=== PATIENT | male | born 1970 | race Hispanic/Latino ===

== ENCOUNTER 2018-11-26 21:55 | Inpatient (IN) | payer BC ==
[~2018-11-26] VITALS: Ht 188 cm; Wt 98.9 kg
[2018-11-26] MEDS ORDERED: ONDANSETRON HCL INJ 2MG/ML 2ML 2 MG/ML VIAL IV STA (22:10)
[2018-11-26] MEDS ORDERED: SODIUM CHLORIDE 0.9% 1000ML 1,000 ML IV STA (22:10)
[2018-11-26] MEDS ORDERED: PANTOPRAZOLE 40 MG 10ML VIAL IV STA (22:10)
[2018-11-26] MEDS ORDERED: MORPHINE SULFATE 2 MG/ML SYR 1ML IV STA (22:10)
[2018-11-26] MEDS ORDERED: FAMOTIDINE 20 MG/2 ML VIAL IV STA (22:49)
[2018-11-26] MEDS ORDERED: MORPHINE SULFATE INJ 4 MG/ML INJ 1ML IV STA (22:49)
[2018-11-26 22:59] LABS: BASOPHILS % 0.2 % (0.0-1.0); EOSINOPHILS % 0.2 % (0.0-6.0); HEMOGLOBIN 9.9 g/dL (14.0-18.0); LYMPHOCYTES # (AUTO) 0.6 (1.0-3.2); LYMPHOCYTES % 5.9 % (18.0-39.1); MEAN CORPUSCULAR HEMOGLOBIN 28.1 pg (28-32); MEAN CORPUSCULAR HGB CONC 34.1 g/dL (31-35); MEAN CORPUSCULAR VOLUME 82.4 fL (81-99); MONOCYTES % 9.6 % (4.4-11.3); NEUTROPHILS # (AUTO) 8.8 (2.1-6.9); NEUTROPHILS % 83.6 % (38.7-80.0); PLATELET COUNT 186 x10e3/uL (140-360); RED BLOOD COUNT 3.52 x10e6/uL (4.3-5.7); RED CELL DISTRIBUTION WIDTH 12.5 % (11.7-14.4)
[2018-11-26 23:09] LABS: INR 1.35; PROTHROMBIN TIME 17.3 seconds (11.9-14.5)
[2018-11-26 23:10] LABS: PARTIAL THROMBOPLASTIN TIME 58.4 seconds (23.8-35.5)
[2018-11-26 23:13] LABS: BILIRUBIN,URINE NEGATIVE (NEGATIVE); CLARITY,URINE HAZY (CLEAR); COLOR,URINE YELLOW (YELLOW); KETONES,URINE TRACE (NEGATIVE); LEUKOCYTE ESTERASE ,URINE NEGATIVE (NEGATIVE); NITRITE,URINE NEGATIVE (NEGATIVE); PROTEIN,URINE DIPSTICK 2+ (NEGATIVE); URINE UROBILINOGEN 0.2 mg/dL (0.2 - 1)
[2018-11-26 23:14] LABS: INFLUENZAE A&B ANTIGEN (RAPID) NEGATIVE (NEGATIVE); STREPTOCOCCUS GRP A ANTIGEN POSITIVE (NEGATIVE)
--- NOTE | 2018-11-26 23:15 | Diagnostic Imaging Report ---
EXAMINATION: CHEST SINGLE (PORTABLE) INDICATION: ^COUGH FEVER COMPARISON: None FINDINGS: AP view TUBES and LINES: None. LUNGS: Lungs are well inflated. Right upper lobe consolidative pneumonia. Questionable involvement of the right middle lobe and parts of the right lower lobe and left lower lobe. PLEURA: No pleural effusion or pneumothorax. HEART AND MEDIASTINUM: The cardiomediastinal silhouette is unremarkable. BONES AND SOFT TISSUES: No acute osseous lesion. Soft tissues are unremarkable. UPPER ABDOMEN: No free air under the diaphragm. IMPRESSION: Right upper lobe consolidative pneumonia. Questionable additional involvement of the right middle and bilateral lower lobes. Signed by: Dr. Srinivas Fonseca M.D. on 11/26/2018 11:12 PM
[2018-11-26 23:18] LABS: ALBUMIN 2.7 g/dL (3.5-5.0); ALBUMIN/GLOBULIN RATIO 0.6 (0.8-2.0); ANION GAP 13.5 mmol/L (8-16); BACTERIA,URINE MANY /HPF; CALCIUM 8.7 mg/dL (8.4-10.2); CREATININE, SERUM 2.06 mg/dL (0.72-1.25); EPITHELIAL CELLS,URINE FEW /LPF; MAGNESIUM 1.3 MG/DL (1.3-2.1); POTASSIUM 3.5 mmol/L (3.5-5.1)
[2018-11-26 23:25] LABS: CREATINE KINASE MB 0.5 ng/mL (0-5.0)
[2018-11-26] MEDS ORDERED: CEFEPIME 2 GM/NS 0.9% 100 ML 100 ML IV SCH (23:45)
[2018-11-26] MEDS ORDERED: VANCOMYCIN 1GM/NS 250 ML 250 ML IV ONE (23:55)
[2018-11-27] MEDS ORDERED: VYTORIN 10-101 EACH PO (00:11)
[2018-11-27] MEDS ORDERED: AMLODIPINE BESY10 MG PO (00:11)
[2018-11-27] MEDS ORDERED: NOVOLOG MI100 UNIT/1 (00:11)
[2018-11-27] MEDS ORDERED: LEVEMIR (00:11)
[2018-11-27] MEDS ORDERED: CARVEDILOL25 MG PO (00:11)
[2018-11-27] MEDS ORDERED: LOSARTAN POTASS25 MG PO (00:11)
[2018-11-27] MEDS ORDERED: ATORVASTATIN CA40 MG PO (00:11)
[2018-11-27] MEDS: ALBUTEROL SULF 0.083% NEB SOLN 3 ML NEB NEB SCH ×6 (00:13→19:46)
--- NOTE | 2018-11-27 00:57 | Diagnostic Imaging Report ---
EXAM: CT Abdomen and Pelvis WITHOUT contrast INDICATION: ^EDDI ABD PAIN, FEVER COMPARISON: Chest x-ray 11/26/2018. TECHNIQUE: Abdomen and pelvis were scanned utilizing a multidetector helical scanner from the lung base to the pubic symphysis without administration of IV contrast. Absence of intravenous contrast decreases sensitivity for detection of focal lesions and vascular pathology. Coronal and sagittal reformations were obtained. Routine protocol was performed. IV CONTRAST: None ORAL CONTRAST: Water COMPLICATIONS: None RADIATION DOSE: Total DLP: 542.27 mGy*cm Estimated effective dose: (DLP x 0.015 x size factor) mSv CTDIvol has been reviewed. It is below the limits set by the Radiation Protocol Committee (RPC). Dose modulation, iterative reconstruction, and/or weight based adjustment of the mA/kV was utilized to reduce the radiation dose to as low as reasonably achievable. FINDINGS: LINES and TUBES: None. LOWER THORAX: Bilateral lower lobe airspace opacities, consistent with pneumonia, left greater the right. Tiny bilateral pleural effusions. HEPATOBILIARY: No focal hepatic lesions. No biliary ductal dilation. GALLBLADDER: No radio-opaque stones or sludge. No wall thickening. SPLEEN: No splenomegaly. PANCREAS: No focal masses or ductal dilatation. ADRENALS: No adrenal nodules KIDNEYS/URETERS: No hydronephrosis. No cystic or solid mass lesions. No stones. GI TRACT: No abnormal distention, wall thickening, or evidence of bowel obstruction. Right colon is filled with liquid stool. Appendix is normal. PELVIC ORGANS/BLADDER: Prostate measures 5.3 cm in transverse dimension. Calcifications of bilateral vas deferens. LYMPH NODES: No lymphadenopathy. VESSELS: Unremarkable. PERITONEUM / RETROPERITONEUM: Trace free fluid along bilateral paracolic gutter. BONES: Unremarkable. SOFT TISSUES: Mild soft tissue stranding in the anterior subcutaneous tissues. IMPRESSION: 1. Bilateral lower lobe pneumonia. 2. Right colon filled with liquid stool, which can be seen in diarrhea. 3. Trace free fluid in the paracolic gutters. This can be seen in patients with poor renal function. 4. Calcifications of bilateral vas deferens, which is commonly seen in uncontrolled diabetes. Signed by: Dr. Srinivas Fonseca M.D. on 11/27/2018 12:54 AM
[2018-11-27] MEDS ORDERED: SODIUM CHLORIDE 0.9% 1000ML 1,000 ML IV SCH (01:18)
[2018-11-27] MEDS ORDERED: DEXTROSE 50% SYRINGE 50 ML IV PRN (01:30)
--- OUTSIDE RECORDS SUMMARY | 2018-11-27 01:35 | XMS REPORT ---
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 Allergies, Adverse Reactions, Alerts This patient has no known allergies or adverse reactions. Medications This patient has no known medications. Results Test Description Test Time Test Comments Text Results Atomic Results Result Comments CT ABDOMEN/PELVIS WO 2018-11-27 00:45:00 [place] [address] Patient Name: MARCO A GILLESPIE MR #: [id number] : 1970 Age/Sex: 48/M Req #: [id number] Adm Physician: Ordered by: LIZET CROWDER MD Report #: [id number] Location: ER Room/Bed: Procedure: [id number] CT/CT ABDOMEN/PELVIS WO Exam Date: Exam Time: REPORT STATUS: Signed EXAM: CT Abdomen and Pelvis WITHOUT contrast INDICATION: EDDI ABD PAIN, FEVER COMPARISON: Chest x-ray 11/26/2018. TECHNIQUE: Abdomen and pelvis were scanned utilizing a multidetector helical scanner from the lung base to the pubic symphysis without administration of IV contrast. Absence of intravenous contrast decreases sensitivity for detection of focal lesions and vascular pathology. Coronal and sagittal reformations were obtained. Routine protocol was performed. IV CONTRAST: None ORAL CONTRAST: Water COMPLICATIONS: None RADIATION DOSE: Total DLP: 542.27 mGy*cm Estimated effective dose: (DLP x 0.015 x size factor) mSv CTDIvol has been reviewed. It is below the limits set by the Radiation Protocol Committee (RPC). Dose modulation, iterative reconstruction, and/or weight based adjustment of the mA/kV was utilized to reduce the radiation dose to as low as reasonably achievable. FINDINGS: LINES and TUBES: None. LOWER THORAX: Bilateral lower lobe airspace opacities, consistent with pneumonia, left greater the right. Tiny bilateral pleural effusions. HEPATOBILIARY: No focal hepatic lesions. No biliary ductal dilation. GALLBLADDER: No radio-opaque stones or sludge. No wall thickening. SPLEEN: No splenomegaly. PANCREAS: No focal masses or ductal dilatation. ADRENALS: No adrenal nodules KIDNEYS/URETERS: No hydronephrosis. No cystic or solid mass lesions. No stones. GI TRACT: No abnormal distention, wall thickening, or evidence of bowel obstruction. Right colon is filled with liquid stool. Appendix is normal. PELVIC ORGANS/BLADDER: Prostate measures 5.3 cm in transverse dimension. Calcifications of bilateral vas deferens. LYMPH NODES: No lymphadenopathy. VESSELS: Unremarkable. PERITONEUM / RETROPERITONEUM: Trace free fluid along bilateral paracolic gutter. BONES: Unremarkable. SOFT TISSUES: Mild soft tissue stranding in the anterior subcutaneous tissues. IMPRESSION: 1. Bilateral lower lobe pneumonia. 2. Right colon filled with liquid stool, which can be seen in diarrhea. 3. Trace free fluid in the paracolic gutters. This can be seen in patients with poor renal function. 4. Calcifications of bilateral vas deferens, which is commonly seen in uncontrolled diabetes. Signed by: Dr. Patience Fonseca M.D. on 11/27/2018 12:54 AM Dictated By: PATIENCE FONSECA MD Transcribed By: MELISSA on 11/27/1853 COPY TO: LIZET CROWDER MD CHEST SINGLE (PORTABLE) 2018-11-26 23:11:00 [place] [address] Patient Name: MARCO A GILLESPIE MR #: [id number] : 1970 Age/Sex: 48/M Req #: [id number] Adm Physician: Ordered by: LIZET CROWDER MD Report #: [id number] Location: Room/Bed: Procedure: [id number] DX/CHEST SINGLE (PORTABLE) Exam Date: Exam Time: REPORT STATUS: Signed EXAMINATION: CHEST SINGLE (PORTABLE) INDICATION: COUGH FEVER COMPARISON: None FINDINGS: AP view TUBES and LINES: None. LUNGS: Lungs are well inflated. Right upper lobe consolidative pneumonia. Questionable involvement of the right middle lobe and parts of the right lower lobe and left lower lobe. PLEURA: No pleural effusion or pneumothorax. HEART AND MEDIASTINUM: The cardiomediastinal silhouette is unremarkable. BONES AND SOFT TISSUES: No acute osseous lesion. Soft tissues are unremarkable. UPPER ABDOMEN: No free air under the diaphragm. IMPRESSION: Right upper lobe consolidative pneumonia. Questionable additional involvement of the right middle and bilateral lower lobes. Signed by: Dr. Patience Fonseca M.D. on 11/26/2018 11:12 PM Dictated By: PATIENCE FONSECA MD 11 Transcribed By: MELISSA on 11/26/182311 COPY TO: LIZET CROWDER MD
[2018-11-27] MEDS: AZITHROMYCIN 500MG/NS 250 ML 250 ML IV SCH ×2 (02:44→08:37)
[2018-11-27] MEDS: ONDANSETRON HCL INJ 2MG/ML 2ML 2 MG/ML VIAL IV PRN ×2 (02:45→08:56)
[2018-11-27] MEDS: ACETAMINOPHEN 325 MG TAB PO PRN ×2 (02:51→17:32)
[2018-11-27] MEDS ORDERED: VANCOMYCIN 1GM/NS 250 ML 250 ML ONE (04:26)
[2018-11-27 06:42] LABS: CREATINE KINASE MB 0.5 ng/mL (0-5.0)
--- NOTE | 2018-11-27 07:00 | NUR ---
ASSUMED CARE AT THIS TIME. PATIENT LAYING IN BED WITH EYES CLOSED. SKIN WARM AND DRY. RESP EVEN AND UNLABORED. NO SIGNS OF ACUTE DISTRESS NOTED AT THIS TIME.
--- NOTE | 2018-11-27 07:00 | NUR ---
REPORT GIVEN TO ARABELLA ROBB DAY SHIFT NURSE.
[2018-11-27] MEDS ORDERED: INSULIN LISPRO 100 UNIT/1 ML 3ML VIAL SQ SCH (07:30)
[2018-11-27] MEDS: IPRATROPIUM BROMIDE 0.02% 2.5 ML NEB NEB SCH ×3 (07:32→19:46)
--- NOTE | 2018-11-27 08:35 | NUR ---
PATIENT AWAKE AND ALERT SITTING IN BED EATING BREAKFAST. C/O EPIGASTRIC PAIN, REQUESTING PAIN MEDICATION. RESP EVEN AND UNLABORED. SKIN WARM AND DRY. NO SIGNS OF ACUTE DISTRESS NOTED AT THIS TIME. DENIES ANY OTHER C/O AT THIS TIME. FAMILY AT BEDSIDE.
[2018-11-27] MEDS: MORPHINE SULFATE INJ 4 MG/ML INJ 1ML IV PRN (08:55)
[2018-11-27] MEDS ORDERED: PANTOPRAZOLE 40 MG 10ML VIAL IV SCH (09:00)
--- NOTE | 2018-11-27 11:24 | NUR ---
DR COVARRUBIAS AT BEDSIDE FOR PATIENT EVAL AND DISCUSSING THE CURRENT PLAN OF CARE WITH PATIENT AND FAMILY,VERBALIZED UNDERSTANDING. NO SIGNS OF ACUTE DISTRESS NOTED AT THIS TIME.
[2018-11-27] MEDS: LACTATED RINGER'S 1,000 ML IV SCH ×2 (11:40→21:56)
[2018-11-27] MEDS: CEFTRIAXONE SOD 1 GM/NS 50 ML 50 ML IV SCH (12:57)
[2018-11-27] MEDS: INSULIN LISPRO 100 UNIT/1 ML 3ML VIAL SQ SCH ×3 (13:01→21:56)
[2018-11-27] MEDS: METRONIDAZOLE 500MG/NS 100ML 100 ML IV SCH ×2 (14:24→22:03)
--- NOTE | 2018-11-27 17:11 | NUR ---
RCD PT FROM ER BY BED PT IS ALERT AND ORIENTED GETTING O2 3L BY NC ,HE SAID HE STARTED ABDOMINAL PAIN ON TUESDAY IV PATENT AND RUNNING 100 ML/HR ADMISSION ASSESSMENT AND HISTORY DONE HE VOIDED INSTRUCTED PT REGARDING HOSPITAL POLICY AND ROUTINE BED LOW AND LOCKED CALL LIGHT IN REACH
[2018-11-27 17:31] VITALS: BP 160/83
[2018-11-27 17:44] VITALS: BP 160/83
[2018-11-27 17:50] VITALS: BP 160/83
--- NOTE | 2018-11-27 18:11 | NUR ---
SILKE AND TALKED DR COVARRUBIAS REGARDING HOME MEDS RENEWAL SINCE HIS BP 160/83 HH/HG GOT NEW ORDERS AND GOT THE ORDER TO HOLD LOSARTAN
[2018-11-27] MEDS: AMLODIPINE BESYLATE 10 MG TAB PO SCH (18:25)
--- NOTE | 2018-11-27 18:30 | NUR ---
PT ON CONTINUOS PULSE OX
--- NOTE | 2018-11-27 18:50 | NUR ---
PT RESTING ON BED BED SIDE REPORT GIVEN TO ONCOMING NURSE
[2018-11-27 20:00] VITALS: BP 130/63
[2018-11-27] MEDS ORDERED: NON-FORMULARY MEDICATION (Atorvastatin Calcium 40 MG) PO SCH (21:00)
[2018-11-27] MEDS ORDERED: NON-FORMULARY MEDICATION (Carvedilol 25 MG) PO SCH (21:00)
[2018-11-27] MEDS: ATORVASTATIN 40 MG TAB PO SCH (21:56)
[2018-11-27] MEDS: CARVEDILOL 12.5 MG TAB PO SCH (21:56)
[2018-11-28] VITALS (7 sets, daily range): BP systolic 117–151; BP diastolic 59–82
[2018-11-28] MEDS: IPRATROPIUM BROMIDE 0.02% 2.5 ML NEB NEB SCH (00:13)
[2018-11-28] MEDS: ALBUTEROL SULF 0.083% NEB SOLN 3 ML NEB NEB SCH (03:55)
[2018-11-28 05:15] LABS: BASOPHILS % 0.2 % (0.0-1.0); EOSINOPHILS # (AUTO) 0.1 (0.0-0.4); HEMATOCRIT 24.4 % (38.2-49.6); HEMOGLOBIN 8.5 g/dL (14.0-18.0); LYMPHOCYTES # (AUTO) 0.6 (1.0-3.2); MEAN CORPUSCULAR HEMOGLOBIN 28.7 pg (28-32); MEAN CORPUSCULAR HGB CONC 34.8 g/dL (31-35); MEAN CORPUSCULAR VOLUME 82.4 fL (81-99); MONOCYTES # (AUTO) 0.8 (0.2-0.8); MONOCYTES % 13.9 % (4.4-11.3); NEUTROPHILS # (AUTO) 4.4 (2.1-6.9); NEUTROPHILS % 74.6 % (38.7-80.0); PLATELET COUNT 147 x10e3/uL (140-360); RED BLOOD COUNT 2.96 x10e6/uL (4.3-5.7); RED CELL DISTRIBUTION WIDTH 12.6 % (11.7-14.4)
[2018-11-28 05:26] LABS: INR 1.3; PROTHROMBIN TIME 16.8 seconds (11.9-14.5)
[2018-11-28 05:27] LABS: PARTIAL THROMBOPLASTIN TIME 55.3 seconds (23.8-35.5)
[2018-11-28] MEDS: MORPHINE SULFATE INJ 4 MG/ML INJ 1ML IV PRN ×2 (05:30→22:51)
[2018-11-28 05:50] LABS: ALBUMIN 2.2 g/dL (3.5-5.0); ALBUMIN/GLOBULIN RATIO 0.6 (0.8-2.0); ANION GAP 12.9 mmol/L (8-16); CALCIUM 8.3 mg/dL (8.4-10.2); CREATININE, SERUM 1.81 mg/dL (0.72-1.25); POTASSIUM 3.9 mmol/L (3.5-5.1)
[2018-11-28] MEDS: METRONIDAZOLE 500MG/NS 100ML 100 ML IV SCH ×2 (06:32→13:40)
--- NOTE | 2018-11-28 07:01 | NUR ---
REPORT GIVEN TO ONCOMING NURSE.WALKING ROUNDS MADE.PT RESTING IN BED WITH NO S/S OF DISTRESS.
[2018-11-28] MEDS: LACTATED RINGER'S 1,000 ML IV SCH ×2 (07:15→17:15)
[2018-11-28] MEDS: INSULIN LISPRO 100 UNIT/1 ML 3ML VIAL SQ SCH ×4 (07:30→20:50)
[2018-11-28] MEDS: AZITHROMYCIN 500MG/NS 250 ML 250 ML IV SCH (09:00)
[2018-11-28] MEDS: AMLODIPINE BESYLATE 10 MG TAB PO SCH (09:00)
[2018-11-28] MEDS: CARVEDILOL 12.5 MG TAB PO SCH ×2 (09:00→20:50)
[2018-11-28] MEDS: ACETAMINOPHEN 325 MG TAB PO PRN ×2 (09:50→15:39)
[2018-11-28] MEDS ORDERED: ONDANSETRON HCL 4 MG ORAL DISINTEGRATING TAB PO PRN (10:15)
[2018-11-28] MEDS: CEFTRIAXONE SOD 1 GM/NS 50 ML 50 ML IV SCH (12:00)
[2018-11-28] MEDS ORDERED: ALBUTEROL SULF 0.083% NEB SOLN 3 ML NEB NEB PRN (13:45)
[2018-11-28 13:53] LABS: LYMPHOCYTES % (MANUAL) 8 % (19-48); MONOCYTES % (MANUAL) 6 % (3.4-9.0); MYELOCYTES % (MANUAL) 1 % (0-0); NEUTROPHILS % (MANUAL) 84 % (40-74)
[2018-11-28 13:54] LABS: PLATELET MORPHOLOGY COMMENT NORMAL
[2018-11-28 13:55] LABS: ANISOCYTOSIS SLIGHT; HYPOCHROMASIA SLIGHT; PLATELET ESTIMATE ADEQUATE; RBC MORPHOLOGY COMMENT NORMAL
--- NOTE | 2018-11-28 15:35 | NUR ---
Visit made by the Spiritual Care Department Pastoral Visitor, Rosalie Kilpatrick. PV provided pastoral presence, prayer, hospitality, and supportive listening. Pastoral Visitor informed pt/family of the scope of Assessment Clinician Services and availability. PATO MORTON Central Sterilization Technician Spiritual Care Department O: [phone] Pager: [phone] ([phone] number calling from)
--- NOTE | 2018-11-28 18:51 | NUR ---
PT RESTING ON BED BED SIDE REPORT GIVEN TO ONCOMING NURSE
[2018-11-28] MEDS: ATORVASTATIN 40 MG TAB PO SCH (20:50)
[2018-11-29] VITALS (7 sets, daily range): BP systolic 142–162; BP diastolic 67–85
[2018-11-29] MEDS: LACTATED RINGER'S 1,000 ML IV SCH (03:15)
[2018-11-29 06:34] LABS: BASOPHILS % 0.2 % (0.0-1.0); EOSINOPHILS # (AUTO) 0.1 (0.0-0.4); EOSINOPHILS % 2.1 % (0.0-6.0); HEMATOCRIT 25.9 % (38.2-49.6); HEMOGLOBIN 8.7 g/dL (14.0-18.0); LYMPHOCYTES # (AUTO) 0.6 (1.0-3.2); LYMPHOCYTES % 9.7 % (18.0-39.1); MEAN CORPUSCULAR HEMOGLOBIN 28.2 pg (28-32); MEAN CORPUSCULAR HGB CONC 33.6 g/dL (31-35); MEAN CORPUSCULAR VOLUME 83.8 fL (81-99); MONOCYTES # (AUTO) 0.6 (0.2-0.8); MONOCYTES % 10.2 % (4.4-11.3); NEUTROPHILS # (AUTO) 4.8 (2.1-6.9); NEUTROPHILS % 77.2 % (38.7-80.0); PLATELET COUNT 186 x10e3/uL (140-360); RED BLOOD COUNT 3.09 x10e6/uL (4.3-5.7)
[2018-11-29 07:00] LABS: CALCIUM 8.5 mg/dL (8.4-10.2); CREATININE, SERUM 1.65 mg/dL (0.72-1.25)
--- NOTE | 2018-11-29 07:13 | NUR ---
REPORT GIVEN TO ONCOMING NURSE.WALKING ROUNDS MADE.PT RESTING IN BED WITH NO S/S OF DISTRESS.
[2018-11-29 07:42] LABS: INR 1.17; PROTHROMBIN TIME 15.5 seconds (11.9-14.5)
[2018-11-29 07:43] LABS: PARTIAL THROMBOPLASTIN TIME 57.4 seconds (23.8-35.5)
[2018-11-29] MEDS: CARVEDILOL 12.5 MG TAB PO SCH ×2 (08:09→20:10)
[2018-11-29] MEDS: AZITHROMYCIN 500MG/NS 250 ML 250 ML IV SCH (08:09)
[2018-11-29] MEDS: INSULIN LISPRO 100 UNIT/1 ML 3ML VIAL SQ SCH ×4 (08:09→21:00)
[2018-11-29] MEDS: AMLODIPINE BESYLATE 10 MG TAB PO SCH (08:10)
--- NOTE | 2018-11-29 08:13 | NUR ---
The pt's blood glucose is elevated to 386 this morning and insulin coverage was given. The pt. comp of feeling tired and sleepy this morning.
[2018-11-29] MEDS: CEFTRIAXONE SOD 1 GM/NS 50 ML 50 ML IV SCH (11:31)
[2018-11-29] MEDS ORDERED: LACTULOSE SYRUP 20 GM/30 ML UDC PO ONE (13:00)
[2018-11-29] MEDS: SODIUM BICARBONATE 8.4% 50 ML in SODIUM CHLORIDE 0.45% 1,000 ML IV SCH ×2 (14:00→21:24)
[2018-11-29] MEDS: INSULIN GLARGINE 100 UNITS/ML VIAL SQ SCH (15:23)
[2018-11-29] MEDS: ATORVASTATIN 40 MG TAB PO SCH (20:10)
[2018-11-30] VITALS: BP 153/78
[2018-11-30 04:00] VITALS: BP 129/73
[2018-11-30 05:33] LABS: BASOPHILS % 0.4 % (0.0-1.0); EOSINOPHILS # (AUTO) 0.2 (0.0-0.4); HEMATOCRIT 26.8 % (38.2-49.6); HEMOGLOBIN 9.1 g/dL (14.0-18.0); LYMPHOCYTES # (AUTO) 0.8 (1.0-3.2); MEAN CORPUSCULAR HEMOGLOBIN 28.1 pg (28-32); MEAN CORPUSCULAR VOLUME 82.7 fL (81-99); MONOCYTES # (AUTO) 0.5 (0.2-0.8); MONOCYTES % 10.4 % (4.4-11.3); NEUTROPHILS % 64.9 % (38.7-80.0); PLATELET COUNT 249 x10e3/uL (140-360); RED BLOOD COUNT 3.24 x10e6/uL (4.3-5.7); RED CELL DISTRIBUTION WIDTH 12.9 % (11.7-14.4)
[2018-11-30 05:42] LABS: INR 1.17; PROTHROMBIN TIME 15.5 seconds (11.9-14.5)
[2018-11-30 05:43] LABS: PARTIAL THROMBOPLASTIN TIME 49.3 seconds (23.8-35.5)
[2018-11-30] MEDS: SODIUM BICARBONATE 8.4% 50 ML in SODIUM CHLORIDE 0.45% 1,000 ML IV SCH (05:48)
[2018-11-30 05:52] LABS: ANION GAP 15.1 mmol/L (8-16); CALCIUM 8.8 mg/dL (8.4-10.2); CREATININE, SERUM 1.4 mg/dL (0.72-1.25); POTASSIUM 4.1 mmol/L (3.5-5.1)
[2018-11-30] MEDS: AZITHROMYCIN 500MG/NS 250 ML 250 ML IV SCH (08:07)
[2018-11-30] MEDS: INSULIN LISPRO 100 UNIT/1 ML 3ML VIAL SQ SCH ×2 (08:07→11:30)
[2018-11-30 08:08] VITALS: BP 170/89
[2018-11-30] MEDS: CARVEDILOL 12.5 MG TAB PO SCH (08:08)
[2018-11-30] MEDS: INSULIN GLARGINE 100 UNITS/ML VIAL SQ SCH (08:08)
[2018-11-30] MEDS: AMLODIPINE BESYLATE 10 MG TAB PO SCH (08:08)
[2018-11-30 10:06] VITALS: BP 170/89
[2018-11-30] MEDS: CEFTRIAXONE SOD 1 GM/NS 50 ML 50 ML IV SCH (12:00)
--- NOTE | 2018-11-30 13:28 | NUR ---
Dr. Ambrose visited and discharged to pt. to go home.
[2018-11-30] MEDS ORDERED: LEVAQUIN500 MG PO ×2 (15:27→15:29)
--- NOTE | 2018-11-30 15:54 | NUR ---
The pt. was transported to private car for transport home and placed into the care of his spouse.
--- NOTE | 2018-11-30 20:42 | Discharge Summary ---
PRIMARY CARE DOCTOR: Nikhil Elizondo. FINAL DIAGNOSIS: Sepsis present on admission due to community-acquired pneumonia. SECONDARY DIAGNOSES: 1. Mild rhabdomyolysis, improving. 2. Coagulopathy, improving. 3. Anemia, stable. 4. Acute renal failure, resolving. 5. Hyponatremia, resolved. CONSULTANTS: None. PROCEDURES/STUDIES PERFORMED: CT of the chest and abdomen. HISTORY: Per H and P. HOSPITAL COURSE: The patient was put on Rocephin and azithromycin. He improved very slowly. Initially, the patient had dyspnea on exertion; however, that has resolved. The patient was on bicarb drip for his mild rhabdomyolysis. At the time of discharge, his creatinine is 1.4 down from 2.06 on admission. The patient will go home on 3 more days of p.o. Levaquin to complete one-week course. The patient was seen and examined today. It took 32 minutes total to discharge this patient. CONDITION ON DISCHARGE: Improved. DISCHARGE MEDICATIONS: Please see medication reconciliation form. MD JUAN Santoro/REJI /[id number] cc: Nikhil Elizondo
== END 2018-11-30 15:49 | disposition home or self-care (01) | DRG 871 ==
LOC: ER 21:55 → EDSEX 21:55 → ERHOLD 11-27 01:31 → MED/SURG2 11-27 17:13
PROVIDERS: ADMIT Internal Medicine; ATTEND Internal Medicine
DX: A41.9 Sepsis, unspecified organism (principal); J18.9 Pneumonia, unspecified organism; M62.82 Rhabdomyolysis; D68.9 Coagulation defect, unspecified; N17.9 Acute kidney failure, unspecified; E87.1 Hypo-osmolality and hyponatremia; D64.9 Anemia, unspecified; R10.9 Unspecified abdominal pain
CPT/HCPCS: 36415; 71045; 74176; 80048; 80053; 80061; 81001; 82150; 82270; 82550; 82553; 82948; 83518; 83540; 83605; 83690; 83735; 84443; 84466; 84484; 85025; 85610; 85730; 86850; 86900; 87040; 87086; 87400; 93005; 94640; 99284; J0456; J0696; J1815; J2270; J2405; J3370; J7030; J7121